=== PATIENT | female | born 2000 | race Caucasian/White ===

== ENCOUNTER 2018-11-26 14:49 | Emergency (ER) | payer OTHER ==
[~2018-11-26] VITALS: Ht 157.5 cm; Wt 40.8 kg
[~2018-11-26 14:49] MED LIST: DIPH12.5EL PO; HYDCOR1TC TOP; PRED10 PO; PRED15SY PO; Permethrin60 GM TP
[2018-11-26] MEDS ORDERED: Prednisone10 MG PO (15:09)
== END 2018-11-26 15:20 | disposition home or self-care (01) ==
LOC: ER 14:49
DX: L23.7 Allergic contact dermatitis due to plants, except food (principal)
CPT/HCPCS: 99283